=== PATIENT | female | born 1995 | race Caucasian/White ===

== ENCOUNTER 2021-01-11 08:30 | Emergency (ER) | payer OTHER, MEDICAID ==
[~2021-01-11] VITALS: Ht 152.4 cm; Wt 56.7 kg
[2021-01-11] MEDS ORDERED: LATUDA60 MG PO (08:43)
[2021-01-11] MEDS ORDERED: VITAMIN B-1100 M2 PO (08:44)
[2021-01-11] MEDS ORDERED: SEROQUEL 25 MG25 M1 PO (08:44)
[2021-01-11 08:51] LABS: BASOPHILS 0.8 %; MCV 90.5 fL (80.0-100.0); MPV 8.2 fl. (7.2-11.1)
[2021-01-11 08:53] LABS: ABSOLUTE EOSINOPHILS 0.1 thou/uL (0.0-0.7); ABSOLUTE LYMPHOCYTES 1.8 thou/uL (0.8-5.3); ABSOLUTE MONOCYTES 0.4 thou/uL (0.0-1.2); ABSOLUTE NEUTROPHILS 2.6 thou/uL (1.6-8.1); EOSINOPHILS 1.1 %; HEMOGLOBIN 14.3 gm/dL (12.0-15.0); LYMPHOCYTES 36.1 %; MCH 30.9 pg (26.0-34.0); MCHC 34.1 g/dL (28.0-37.0); MONOCYTES 8.1 %; NUCLEATED RBCS 0 /100WBC; PLATELET COUNT* 205 thou/uL (150-400); POLYS 53.9 %; RBC 4.64 mil/uL (4.20-5.00); RDW-CV 12.4 % (10.5-14.5); WBC 4.9 thou/uL (4.0-11.0)
[2021-01-11 09:00] LABS: CALCIUM 8.2 mg/dL (8.5-10.1); CREATININE 0.8 mg/dL (0.6-1.3); POTASSIUM 3.2 mmol/L (3.5-5.1)
[2021-01-11 09:05] LABS: APTT 21.6 Seconds (25.0-31.3); PROTIME 10.5 Seconds (9.20-11.50)
[2021-01-11 09:13] LABS: ALBUMIN 3.6 g/dL (3.4-5.0); TOTAL BILIRUBIN 0.6 mg/dL (<0.1-1.0); TOTAL PROTEIN 6.9 g/dL (6.4-8.2)
--- NOTE | 2021-01-11 09:57 | EKG ---
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 01/11/21 [id number] 3 3 Buddy Arriola MD, [facility] /EPI
[2021-01-11 10:25] VITALS: BP 111/63
== END 2021-01-11 10:25 | disposition home or self-care (01) ==
LOC: M.ERS 08:30
PROVIDERS: Family Medicine
DX: R55 Syncope and collapse (principal); K58.9 Irritable bowel syndrome, unspecified; M19.90 Unspecified osteoarthritis, unspecified site; Z88.6 Allergy status to analgesic agent

== ENCOUNTER 2021-03-10 12:24 | Emergency (ER) | payer OTHER, MEDICAID ==
[~2021-03-10] VITALS: Ht 152.4 cm; Wt 56.7 kg
[~2021-03-10 12:24] MED LIST: LATUDA60 MG PO; SEROQUEL 25 MG25 M1 PO; VITAMIN B-1100 M2 PO
[2021-03-10] MEDS ORDERED: ABILIFY 5 MG TAB5 M1 PO (12:45)
[2021-03-10] MEDS ORDERED: HYDROCODON-ACE1 EAC7 PO (12:51)
[2021-03-10] MEDS ORDERED: PREDNISONE 20 M20 M1 PO (12:51)
[2021-03-10] MEDS ORDERED: ZOFRAN ODT4 MG DISSOLVE (13:28)
[2021-03-10 13:49] VITALS: BP 112/76
== END 2021-03-10 13:50 | disposition home or self-care (01) ==
LOC: M.ERS 12:24
DX: M25.552 Pain in left hip (principal); M19.90 Unspecified osteoarthritis, unspecified site; Z88.6 Allergy status to analgesic agent

== ENCOUNTER 2021-07-31 19:02 | Emergency (ER) | payer OTHER, MEDICAID ==
[~2021-07-31] VITALS: Ht 152.4 cm; Wt 61.2 kg
[~2021-07-31 19:02] MED LIST changes: +ABILIFY 5 MG TAB5 M1 PO; +HYDROCODON-ACE1 EAC7 PO; +PREDNISONE 20 M20 M1 PO; +ZOFRAN ODT4 MG DISSOLVE
[2021-07-31 19:13] VITALS: BP 137/79
[2021-07-31] MEDS ORDERED: TRAZODONE HCL50 MG PO (19:16)
[2021-07-31] MEDS ORDERED: LEXAPRO20 MG PO ×2 (19:16)
[2021-08-01] MEDS ORDERED: LATUDA20 MG PO (13:01)
[2021-08-01] MEDS ORDERED: TRAMADOL 50 MG50 MG PO (15:49)
[2021-08-01] MEDS ORDERED: OMEPRAZOLE 20 M20 M1 PO (16:03)
== END 2021-07-31 20:36 | disposition left against medical advice (07) ==
LOC: M.ERS 19:02
DX: R10.11 Right upper quadrant pain (principal); Z53.21 Procedure and treatment not carried out due to patient leaving prior to being seen by health care provider

== ENCOUNTER 2021-08-01 12:41 | Emergency (ER) | payer OTHER, MEDICAID ==
[~2021-08-01] VITALS: Ht 152.4 cm; Wt 61.2 kg
[~2021-08-01 12:41] MED LIST changes: +LEXAPRO20 MG PO; +TRAZODONE HCL50 MG PO
[2021-08-01] MEDS ORDERED: LATUDA20 MG PO (13:01)
[2021-08-01 13:13] LABS: URINE BILIRUBIN NEGATIVE (Negative); URINE BLOOD NEGATIVE (Negative); URINE CLARITY CLEAR; URINE COLOR YELLOW; URINE GLUCOSE-RANDOM NEGATIVE (Negative); URINE KETONES NEGATIVE (Negative); URINE LEUKOCYTES-REFLEX NEGATIVE (Negative); URINE NITRITE-REFLEX NEGATIVE (Negative); URINE PROTEIN NEGATIVE (Negative); URINE UROBILINOGEN 0.2 E.U./dl (0.2-1.0)
[2021-08-01 13:31] LABS: ABSOLUTE BASOPHILS 0.1 thou/uL (0.0-0.2); ABSOLUTE EOSINOPHILS 0.1 thou/uL (0.0-0.7); ABSOLUTE LYMPHOCYTES 1.5 thou/uL (0.8-5.3); ABSOLUTE MONOCYTES 0.4 thou/uL (0.0-1.2); ABSOLUTE NEUTROPHILS 3.1 thou/uL (1.6-8.1); BASOPHILS 1.1 %; EOSINOPHILS 1.6 %; HEMATOCRIT 45.2 % (37.0-47.0); HEMOGLOBIN 15.7 gm/dL (12.0-15.0); LYMPHOCYTES 28.7 %; MCH 31.3 pg (26.0-34.0); MCHC 34.6 g/dL (28.0-37.0); MCV 90.5 fL (80.0-100.0); NUCLEATED RBCS 0 /100WBC; PLATELET COUNT* 240 thou/uL (150-400); POLYS 60.6 %; RDW-CV 12.4 % (10.5-14.5); WBC 5.2 thou/uL (4.0-11.0)
[2021-08-01 13:40] LABS: CALCIUM 8.6 mg/dL (8.5-10.1); CREATININE 0.8 mg/dL (0.6-1.3); POTASSIUM 3.4 mmol/L (3.5-5.1)
[2021-08-01 13:44] LABS: ALBUMIN 4.1 g/dL (3.4-5.0); TOTAL BILIRUBIN 0.6 mg/dL (<0.1-1.0); TOTAL PROTEIN 7.8 g/dL (6.4-8.2)
[2021-08-01] MEDS ORDERED: TRAMADOL 50 MG50 MG PO (15:49)
[2021-08-01] MEDS ORDERED: OMEPRAZOLE 20 M20 M1 PO (16:03)
[2021-08-01 16:36] VITALS: BP 110/85
== END 2021-08-01 16:36 | disposition home or self-care (01) ==
LOC: M.ERS 12:41
PROVIDERS: Physician Assistant
DX: R10.11 Right upper quadrant pain (principal); F32.9 Major depressive disorder, single episode, unspecified; F41.9 Anxiety disorder, unspecified; M19.90 Unspecified osteoarthritis, unspecified site; Z79.899 Other long term (current) drug therapy; Z88.6 Allergy status to analgesic agent

== ENCOUNTER 2021-08-11 14:38 | Emergency (ER) | payer OTHER, MEDICAID ==
[~2021-08-11] VITALS: Ht 152.4 cm; Wt 59.0 kg
[~2021-08-11 14:38] MED LIST changes: +LATUDA20 MG PO; +OMEPRAZOLE 20 M20 M1 PO; +TRAMADOL 50 MG50 MG PO
[2021-08-11 15:24] LABS: ABSOLUTE EOSINOPHILS 0.1 thou/uL (0.0-0.7); ABSOLUTE LYMPHOCYTES 1.6 thou/uL (0.8-5.3); ABSOLUTE MONOCYTES 0.5 thou/uL (0.0-1.2); ABSOLUTE NEUTROPHILS 4.4 thou/uL (1.6-8.1); BASOPHILS 0.7 %; EOSINOPHILS 1.3 %; HEMATOCRIT 45.1 % (37.0-47.0); HEMOGLOBIN 15.7 gm/dL (12.0-15.0); MCH 31.2 pg (26.0-34.0); MCHC 34.8 g/dL (28.0-37.0); MCV 89.8 fL (80.0-100.0); MONOCYTES 7.7 %; MPV 8.4 fl. (7.2-11.1); NUCLEATED RBCS 0 /100WBC; PLATELET COUNT* 251 thou/uL (150-400); POLYS 66.3 %; RBC 5.02 mil/uL (4.20-5.00); WBC 6.6 thou/uL (4.0-11.0)
[2021-08-11 15:24] LABS: URINE BILIRUBIN NEGATIVE (Negative); URINE BLOOD NEGATIVE (Negative); URINE CLARITY CLEAR; URINE COLOR YELLOW; URINE GLUCOSE-RANDOM NEGATIVE (Negative); URINE KETONES TRACE (Negative); URINE LEUKOCYTES-REFLEX NEGATIVE (Negative); URINE NITRITE-REFLEX NEGATIVE (Negative); URINE PROTEIN NEGATIVE (Negative); URINE UROBILINOGEN 0.2 E.U./dl (0.2-1.0)
[2021-08-11 15:34] LABS: CALCIUM 8.7 mg/dL (8.5-10.1); CREATININE 0.8 mg/dL (0.6-1.3); POTASSIUM 3.2 mmol/L (3.5-5.1)
[2021-08-11 15:39] LABS: TOTAL BILIRUBIN 0.6 mg/dL (<0.1-1.0); TOTAL PROTEIN 7.3 g/dL (6.4-8.2)
[2021-08-11 16:53] VITALS: BP 128/75
== END 2021-08-11 16:54 | disposition home or self-care (01) ==
LOC: M.ERS 14:38
PROVIDERS: Family Medicine
DX: R10.11 Right upper quadrant pain (principal); F32.9 Major depressive disorder, single episode, unspecified; F41.9 Anxiety disorder, unspecified; M19.90 Unspecified osteoarthritis, unspecified site; Z79.899 Other long term (current) drug therapy; Z88.6 Allergy status to analgesic agent

== ENCOUNTER 2021-09-18 14:41 | Emergency (ER) | payer OTHER, MEDICAID ==
[~2021-09-18] VITALS: Ht 152.4 cm; Wt 55.8 kg
[~2021-09-18 14:41] MED LIST changes: -LATUDA20 MG PO; +LATUDA80 MG PO
[2021-09-18 15:38] LABS: INFLUENZA A ANTIGEN Negative (Negative); INFLUENZA B ANTIGEN Negative (Negative)
[2021-09-18] MEDS ORDERED: TESSALON PERLE100 MG PO (15:50)
[2021-09-18] MEDS ORDERED: PROAIR HFA8.5 GM INH (15:50)
[2021-09-18 15:56] VITALS: BP 104/77
== END 2021-09-18 15:56 | disposition home or self-care (01) ==
LOC: M.ERS 14:41
PROVIDERS: Physician Assistant
DX: U07.1 COVID-19 (principal); M19.90 Unspecified osteoarthritis, unspecified site; Z88.6 Allergy status to analgesic agent; Z79.899 Other long term (current) drug therapy